=== PATIENT | female | born 1960 | race Caucasian/White ===

== ENCOUNTER 2021-02-03 21:47 | Emergency (ER) | payer OTHER ==
[~2021-02-03] VITALS: Ht 170.2 cm; Wt 75.8 kg
[2021-02-03] MEDS ORDERED: LISINOPRIL10 MG PO (22:18)
[2021-02-03] MEDS ORDERED: HYDROCHLOROTH12.5 M1 PO (22:18)
[2021-02-03] MEDS ORDERED: NORVASC10 MG PO (22:18)
[2021-02-03 23:32] VITALS: BP 141/54
== END 2021-02-03 23:33 | disposition home or self-care (01) ==
LOC: M.ERS 21:47
DX: U07.1 COVID-19 (principal); I10 Essential (primary) hypertension